=== PATIENT | male | born 1990 | race Caucasian/White ===

== ENCOUNTER 2017-05-09 12:00 | Inpatient (IN) | payer MEDICAID ==
[~2017-05-09] VITALS: Ht 175.3 cm; Wt 72.6 kg
--- NOTE | ~2017-05-09 | PA ---
Unit #: [id number] #: [id number] Patient: BAKARI RAMEY [id number] [facility] [address] [place] [address] [id number] MR#: [id number] NAME: BAKARI RAMEY ROOM: P182 Age: 26 Sex: M Admission Date: 05/09/2017 : 1990 Date of Assessment: 05/10/2017 Attending Physician: Yanna Dhillon M.D. Admitting Physician: Yanna Dhillon M.D. PSYCHIATRIC ASSESSMENT IDENTIFYING DATA Mr. Ramey is a 26-year-old, single, white male who is a resident of [place], [place], and was self-referred to the hospital was accompanied by his [id number]. CHIEF COMPLAINT "I came in to detox from heroin." HISTORY OF PRESENT ILLNESS Mr. Ramey 26-year-old white male with history of opioid dependance and was self-referred to the hospital and reports that he has been using 1 g daily IV heroin and has been using for the past 4 weeks and reports that he was sober for 2 years before relapsing and stated that he is unsure what called in to relapse and reports the last use today and he reports acute distress or discomfort with COWS of 19 indicating significant withdrawal symptoms. He does report some depression, anxiety, irritability, and significant consequences because of his addiction. He denies any suicidal ideations, intent, or plan. SUBSTANCE ABUSE HISTORY The patient reports history of benzodiazepine abuse, but opioids, particularly IV heroin has been his drug of choice. PAST PSYCHIATRIC HISTORY The patient has had chemical dependency treatment at [facility] in the past. Review of the medical records indicate currently he is not active in any treatment program, is not seeing a psychiatrist, and is not taking any psychotropic medications. PAST MEDICAL HISTORY No acute or chronic medical illness. ALLERGIES No known medication allergies. CURRENT MEDICATIONS None. PERSONAL AND SOCIAL HISTORY A 26-year-old white male who reports that he is single, unemployed, and lives at home with his [id number] and has poor social support system. MENTAL STATUS EXAMINATION Unit #: [id number] #: [id number] Patient: BAKARI RAMEY Young white male who was casually dressed with fair personal hygiene, appears to be in no acute distress or discomfort. He was awake and alert on interaction with intact orientation to time, place, and person. His mood was anxious and depressed with a congruent affect. His speech was slow and restricted in content. His thought processes were disorganized with some looseness of associations. He denies any suicidal or homicidal ideations, and also denies any auditory or visual hallucinations. His insight and judgment remain significantly impaired. DIAGNOSTIC IMPRESSION Psychiatric: Opioid dependence, moderate and acute withdrawals; opioid-induced mood disorder. Medical: None. Stressors: Moderate psychosocial stressors. TREATMENT PLAN 1. The patient has presented with history of mood disorder, and has been decompensating and will need inpatient hospitalization for safety and stabilization. We will start him back on his home medications. We will adjust the medications and monitor response. 2. Supportive therapy was provided to the patient. 3. Safe, structured, and nourishing environment will be provided. ESTIMATED LENGTH OF STAY 5 to 7 days. ABILITY TO HELP SELF Limited. WILLINGNESS TO HELP SELF The patient appears to be willing to help self. STRENGTHS 1. Communicative. 2. Cooperative. PROBLEMS 1. Chronic dysphoric symptoms. 2. Chronic chemical dependency. 3. Poor social support system. DISCHARGE CRITERIA This will be contingent upon the patient's ability to show resolution of his depression and anxiety and his ability to go through detox without having any significant withdrawal symptoms. Dictated by... Fidelia Greco/mary TD: 05/10/2017 11:25 JOB #: [id number] Unit #: [id number] #: [id number] Patient: BAKARI RAMEY PSYCHIATRIC ASSESSMENT Page 1 of 1 X Yanna Dhillon MD X PSYCHIATRIC ASSESSMENT
--- NOTE | ~2017-05-09 | PN ---
Unit #: [id number] #: [id number] Patient: BAKARI RAMEY [id number] [facility] [address] [place] [address] [id number] MR#: [id number] NAME: BAKARI RAMEY ROOM: [facility] Age: 26 Sex: M Admission Date: 05/09/2017 : 1990 Attending Physician: Yanna Dhillon M.D. Admitting Physician: Fidelia Greco PROGRESS NOTES DATE May 10, 2017 DISCUSSION Mr. Ramey is a 26-year-old white male, with substance abuse and mood disorder, who was seen today and chart was reviewed and the case was discussed with the staff. He has been anxious, withdrawn, and rather seclusive to himself. Meanwhile, he has been cooperative with the treatment recommendations and he has been taking the medications and tolerating them fairly well with no reported side effects. MENTAL STATUS EXAMINATION Young white male, who was casually dressed with fair personal hygiene and appears to be in no acute distress or discomfort. He was awake and alert on interaction with intact orientation. His mood is anxious with a congruent affect. Speech is slow and goal-directed. He denies any suicidal or homicidal ideations, and also denies any auditory or visual hallucinations. His insight and judgment remain slightly impaired. TREATMENT PLAN 1. We will continue him on his current medications and treatment protocol, and will monitor his response to the medications, and make further adjustments as needed. 2. We will continue to followup. Dictated by... Fidelia Greco/michael TD: 05/11/2017 12:59 JOB #: [id number] Unit #: [id number] #: [id number] Patient: BAKARI RAMEY PROGRESS NOTES Page 1 of 1 X Yanna Dhillon MD PROGRESS NOTE
--- NOTE | ~2017-05-09 | HP ---
Unit #: [id number] #: [id number] Patient: CRISTIANO RAMEY [id number] [place] [address] [id number] I MR#: [id number] NAME: CRISTIANO RAMEY ROOM: 82 Age: 26 Sex: M Admission Date: 05/09/2017 : 1990 Attending Physician: Yanna Dhillon M.D. Admitting Physician: Yanna Dhillon M.D. HISTORY AND PHYSICAL HISTORY OF PRESENT ILLNESS Cristiano is a 26-year-old male admitted on 05/09/2017 to [facility] for detox from heroin. PAST MEDICAL HISTORY None. PAST SURGICAL HISTORY None. ALLERGIES None. SOCIAL HISTORY Denies tobacco or alcohol use. Does report daily use of heroin. He is currently single and living with his [id number]. FAMILY HISTORY Noncontributory. REVIEW OF SYSTEMS CONSTITUTIONAL: No fever or chills. HEENT: Denies any sore throat, ear pain or runny nose. CARDIOVASCULAR: Denies chest pain, irregular heart rhythm or palpitations. CHEST: Denies shortness of breath or cough. No hemoptysis. GASTROINTESTINAL: Denies nausea, vomiting, diarrhea or chronic constipation. ENDOCRINE: Denies history of increased thirst or urination. No recent significant weight loss or gain. GENITOURINARY: Denies dysuria, frequency, or hematuria. SKIN: Denies any rashes. HEMATOLOGIC: Denies history of increased bleeding or bruising. MUSCULOSKELETAL: Denies any hot, swollen joints. No generalized muscle pain. NEUROLOGIC: Denies problems with vision or speech. No frequent, severe headaches. No numbness, tingling or weakness in any extremities. Denies loss of bladder or bowel control. CURRENT MEDICATIONS None. PHYSICAL EXAMINATION GENERAL: Alert, oriented, in no acute distress. Unit #: [id number] #: [id number] Patient: CRISTIANO RAMEY VITAL SIGNS: Blood pressure 133/97, heart rate 112, respirations 18, temperature 97.7. HEIGHT: 5 feet 9. WEIGHT: 160 pounds. SKIN: Warm and dry without rash or lesion. HEENT: Normocephalic. TMs not viewed. Oral and nasal passages clear. Conjunctivae clear. PERRLA. EOMs intact. NECK: Supple without lymphadenopathy or thyromegaly. HEART: Regular rate and rhythm without murmur. LUNGS: Clear. ABDOMEN: Soft, nontender, without masses or hepatosplenomegaly. : Not done. EXTREMITIES: No evidence of cyanosis, clubbing or edema. Moves all without focal deficit. NEUROLOGICAL: Grossly within normal limits. Cranial Nerves: II: Visual valera are intact. III, IV AND : Extraocular movements are intact. Pupils are equal, round and reactive to light. V: Facial sensation is grossly normal. VII: Facial movements and expression are normal. VIII: Auditory acuity grossly intact. IX, X: Uvula is midline. Phonation is normal. XI: Patient shrugs shoulders and turns head normally. XII: Tongue protrudes in the midline. Sensory and Motor Function: Sensory and motor sensation is grossly normal. Motor: moves all extremities well. Coordination: Gait is normal. Deep Tendon Reflexes: Intact. IMPRESSION Psychiatric admission. RECOMMENDATIONS PSYCHIATRIC: Per psychiatrist. MEDICAL: No contraindication to participate in facility's activities. MEDICAL PROGNOSIS Good. MEDICAL CONDITION Stable. Dictated by... Daniel Baker/agatah TD: 05/12/2017 16:33 JOB #: [id number] Unit #: [id number] #: [id number] Patient: CRISTIANO RAMEY HISTORY AND PHYSICAL Page 1 of 1 X SARAH RIVERA APRN X HISTORY AND PHYSICAL
--- NOTE | ~2017-05-09 | PN ---
Unit #: [id number] #: [id number] Patient: BAKARI RAMEY [id number] [facility] [address] [place] [address] [id number] MR#: [id number] NAME: BAKARI RAMEY ROOM: 82 Age: 26 Sex: M Admission Date: 05/09/2017 : 1990 Attending Physician: Yanna Dhillon M.D. Admitting Physician: Fidelia Greco PROGRESS NOTES DATE 05/11/2017 DISCUSSION Mr. Ramey was seen today for Dr. Dhillon who is on vacation. He has reduced detox symptoms today and is sleeping better. He has a good appetite and is taking oral fluids well. His euthymic mood with a congruent affect and no psychosis or suicidal ideation. ASSESSMENT Opiate dependence. PLAN Continue current treatment plan. Dictated by... Fidelia Morris/dawn TD: 05/14/2017 03:31 JOB #: [id number] [facility] PROGRESS NOTES Page 1 of 1 X Chidi Gray MD X PROGRESS NOTE
== END 2017-05-12 11:23 | DRG 897 ==
LOC: P1E 13:44
PROC: HZ2ZZZZ Detoxification Services for Substance Abuse Treatment (ICD-10-PCS; principal; 2017-05-10)
DX: F11.23 Opioid dependence with withdrawal (principal); F11.24 Opioid dependence with opioid-induced mood disorder